=== PATIENT | female | born 1965 | race Caucasian/White ===

== ENCOUNTER 2024-05-20 22:23 | Emergency (ER) | payer OTHER, SELFPAY ==
[2024-05-20 22:24] VITALS: BP 119/91; PULSE 92; TEMP 37.8; O2SAT 96; BMI 33.5
--- NOTE | 2024-05-20 22:38 | ED.URI1 ---
HPI - URI/Sore Throat General Chief Complaint: Upper Respiratory Infection Stated Complaint: Cough Time Seen by Provider: 05/20/24 22:31 Source: patient Limitations: no limitations History of Present Illness HPI Narrative: Cough and cold symptoms 2 days ago the patient developed runny nose, nasal congestion and cough which has been so frequent that she started to develop a hoarse voice. She said that she is coughing up greenish phlegm and that it is worse at night when she is laying down. She has not slept well for the last 2 nights because of the coughing and the phlegm production. Sometimes that phlegm production gags her. She she complains of generalized muscle achiness and fatigue but denies any fever or chills. She denies any vomiting or diarrhea. Temperature is slightly elevated today at 100.0 Fahrenheit. She admits having several family members who were ill prior to her having development of symptoms but she is not sure if any of them tested positive for influenza or COVID. She has tried taking Tylenol but no other angy-xep-wjihxkj cough or cold preparations. Related Data Home Medications ?Medication ?Instructions ?Recorded ?Confirmed gabapentin 600 mg tablet 600 mg PO DAILY 05/20/24 05/20/24 lisinopril 10 mg tablet 10 mg PO DAILY 05/20/24 05/20/24 Previous Rx's ?Medication ?Instructions ?Recorded oculfoshiebpehl-rwucluewehvtmsv-LV 10 ml PO Q6H PRN cold symptoms 05/20/24 2 mg-30 mg-10 mg/5 mL oral syrup #118 mL (Bromfed DM) Allergies Allergy/AdvReac Type Severity Reaction Status Date / Time ibuprofen (From Motrin) AdvReac Intermediate Headache Verified 05/20/24 22:28 PFSH PFSH Social History Little interest or pleasure in doing things: not at all Feeling down, depressed, or hopeless: not at all Exam Narrative Exam Narrative: Nurses notes and vital signs reviewed and patient is not hypoxic. afebrile General: Well-appearing and in no apparent distress. Skin: Warm, dry, no pallor noted. Head: Normocephalic, atraumatic. Neck: Supple, non-tender. No cervical lymphadenopathy. Eye: Pupils are equal, round and EOMI. No scleral icterus. Ears, Nose, Mouth, and Throat: TM are dull bilaterally but no erythema, injection or retrotympanic purulence. Moderate nasal mucosal hypertrophy with some clear rhinorrhea and post-nasal drip noted. Oral mucosa is moist, uvula is mid-line, no posterior oropharynx erythema Cardiovascular: Regular Rate and Rhythm without murmur, gallop or rub. Respiratory: No accessory muscle use or respiratory distress. Lungs are clear to auscultation, no wheezing, rales or rhonchi Musculoskeletal: normal ROM Neurological: A&O x4. No cranial nerve dysfunction observed. No truncal ataxia. Moves all extremities. Sensation intact. Psychiatric: Cooperative and interactive. Normal mood and affect. Constitutional Vital Signs, click to edit/add: Last Vital Signs Temp 100.0 F 05/20/24 22:24 Pulse 92 H 05/20/24 22:24 Resp 18 05/20/24 22:24 BP 119/91 05/20/24 22:24 Pulse Ox 96 05/20/24 22:24 O2 Del Method Room Air 05/20/24 22:24 Course Vital Signs Vital signs: Vital Signs Temperature 100.0 F 05/20/24 22:24 Pulse Rate 92 H 05/20/24 22:24 Respiratory Rate 18 05/20/24 22:24 Blood Pressure 119/91 05/20/24 22:24 Pulse Oximetry 96 05/20/24 22:24 Oxygen Delivery Method Room Air 05/20/24 22:24 Temperature 100.0 F 05/20/24 22:24 Pulse Rate 92 H 05/20/24 22:24 Respiratory Rate 18 05/20/24 22:24 Blood Pressure 119/91 05/20/24 22:24 Pulse Oximetry 96 05/20/24 22:24 Oxygen Delivery Method Room Air 05/20/24 22:24 MDM - URI/Sore Throat MDM Narrative Medical decision making narrative: Triage nurse swabbed the patient for COVID and influenza. Both were negative The patient's symptoms are suggestive of viral upper respiratory infection. She was informed of results, given reassurance and discharged home with a prescription for Bromfed cough syrup and recommendation continue to take Tylenol as needed for any muscle aches. ED return if she worsens or cannot follow-up with PCP Lab Data Attestation: I reviewed the patient's lab results. Labs: Lab Results 05/20/24 Range/Units 22:33 Influenza Type A Ag Negative Influenza Type B Ag Negative SARS-CoV-2 Ag (CV2AG) Negative (NEGATIVE) Discharge Plan Discharge Chief Complaint: Upper Respiratory Infection Clinical Impression: Upper respiratory infection, Viral infection Patient Disposition: Home, Self-Care Time of Disposition Decision: 22:41 Prescriptions / Home Meds: New [id number] [Bromfed DM] 2-30-10 mg/5 mL syrup 10 ml PO Q6H PRN (Reason: cold symptoms) Qty: 118 0RF No Action lisinopril 10 mg tablet 10 mg PO DAILY gabapentin 600 mg tablet 600 mg PO DAILY Print Language: Grenadian Instructions: Upper Respiratory Infection (ED), Viral Syndrome (ED) Referrals: CAROLA MAYER [Primary Care Provider] - 1 week
[2024-05-20 22:54] LABS: Influenza Virus A Antigen Negative; Influenza Virus B Antigen Negative
[2024-05-20 22:55] LABS: Internal Control Within Normal Limits; SARS-CoV-2 Ag NEGATIVE (NEGATIVE)
== END 2024-05-20 23:14 | disposition home or self-care (01) ==
PROVIDERS: Emergency Provider Emergency Medicine; PCP Internal Medicine
DX: J06.9 Acute upper respiratory infection, unspecified (principal); R50.9 Fever, unspecified
CPT/HCPCS: 87804; 87811; 99283